=== PATIENT | female | born 1945 | race Caucasian/White ===

== ENCOUNTER 2021-08-03 08:46 | Emergency (ER) | payer OTHER, MEDICARE, BC | END 2021-08-03 09:50 | disposition home or self-care (01) | LOC: VM.ED 08:46 | DX: G30.9 Alzheimer's disease, unspecified (principal); F02.80 Dementia in other diseases classified elsewhere, unspecified severity, without behavioral disturbance, psychotic disturbance, mood disturbance, and anxiety; Z79.899 Other long term (current) drug therapy; Z88.0 Allergy status to penicillin | CPT/HCPCS: 99283; 99284 ==

== ENCOUNTER 2021-08-04 17:44 | Emergency (ER) | payer OTHER, MEDICARE, BC | END 2021-08-04 19:45 | disposition home or self-care (01) | LOC: VM.ED 17:44 | DX: S70.01XA Contusion of right hip, initial encounter (principal); S70.02XA Contusion of left hip, initial encounter; S70.12XA Contusion of left thigh, initial encounter; S70.11XA Contusion of right thigh, initial encounter; Z88.0 Allergy status to penicillin; Z79.899 Other long term (current) drug therapy; V49.10XA Passenger injured in collision with unspecified motor vehicles in nontraffic accident, initial encounter; Y92.410 Unspecified street and highway as the place of occurrence of the external cause | CPT/HCPCS: 99283; 99284 ==

== ENCOUNTER 2022-06-25 10:31 | Observation (INO) | payer MEDICARE, BC ==
[2022-06-25 11:34] LABS: CHLORIDE,CL 104 mmol/L (98-107); SODIUM,NA 143 mmol/L (136-145)
[2022-06-25 11:35] LABS: ANION GAP 13.6 mmol/L (5-15); ESTIMATED GFR 67 mL/min (>=60)
[2022-06-25] MEDS ORDERED: cefTRIAXone 1 GM Vial IVPUSH ONE (12:05)
[2022-06-25] MEDS ORDERED: Acetaminophen 325 MG Tab PO PRN (12:19)
[2022-06-25] MEDS ORDERED: Ondansetron 4 MG/2 ML SDV IV PRN (12:19)
[2022-06-25] MEDS ORDERED: Ondansetron 4 MG Tab.DIS PO PRN (12:19)
[2022-06-25] MEDS: Levothyroxine 112 MCG Tab PO SCH (19:51)
[2022-06-25] MEDS: Miconazole 2% Top Powder 45 GM Container TOP SCH ×2 (19:51→21:02)
[2022-06-25] MEDS ORDERED: Nystatin Crm 30 GM Tube TOP SCH (21:00)
[2022-06-26] MEDS: Levothyroxine 112 MCG Tab PO SCH (06:25)
[2022-06-26 07:28] LABS: ANION GAP 10.8 mmol/L (5-15)
[2022-06-26] MEDS: cefTRIAXone 1 GM Vial IVPUSH SCH (09:45)
[2022-06-26] MEDS: Miconazole 2% Top Powder 45 GM Container TOP SCH (21:15)
[2022-06-27] MEDS: Levothyroxine 112 MCG Tab PO SCH (06:04)
[2022-06-27] MEDS: cefTRIAXone 1 GM Vial IVPUSH SCH ×2 (08:40→18:39)
[2022-06-27] MEDS: Miconazole 2% Top Powder 45 GM Container TOP SCH (08:47)
== END 2022-06-27 09:40 ==
LOC: VM.ED 10:31 → VM.MS 12:15
PROVIDERS: ADMIT Physician Assistant Medical; ATTEND Physician Assistant Medical
DX: G30.9 Alzheimer's disease, unspecified (principal); F02.80 Dementia in other diseases classified elsewhere, unspecified severity, without behavioral disturbance, psychotic disturbance, mood disturbance, and anxiety; N30.00 Acute cystitis without hematuria; R53.1 Weakness; Z79.899 Other long term (current) drug therapy; Z79.890 Hormone replacement therapy; Z20.822 Contact with and (suspected) exposure to COVID-19; Z88.0 Allergy status to penicillin
CPT/HCPCS: 36415; 80048; 80053; 81001; 85025; 86140; 87086; 87088; 87186; 90662; 96374; 96376; 99285-25; A9270-GY; G0008; G0378; J0696; U0002